=== PATIENT | female | born 1960 | race Caucasian/White ===

== ENCOUNTER 2016-12-31 10:40 | Emergency (ER) | payer BC ==
[2016-12-31 12:20] VITALS: BP 158/93
--- NOTE | 2016-12-31 12:39 | RAD ---
INDICATION: Left rib injury. COMPARISON: There are no prior studies available for comparison. TECHNIQUE: 2 views of the left ribs and dual-energy PA views of the chest were obtained. FINDINGS: There is a displaced fracture of the anterolateral left sixth rib and a nondisplaced fracture of the anterolateral left seventh rib. The heart is within normal limits in size. The lungs are clear. There is no evidence for pneumothorax or pleural effusion. There is a moderate to severe dorsal scoliosis convex toward the right side. IMPRESSION: FRACTURES OF THE LEFT ANTEROLATERAL SIXTH AND SEVENTH RIBS.
--- NOTE | 2016-12-31 18:11 | ED ---
Back Pain - HPI Summary HPI Summary: Patient presents to the ED with CC of left rib pain after slipping in the shower and falling onto the left side. She notes to immediate SOB. Pain is 4/ 10, worse with inspiration and better with rest. She has not taken anything for the pain. Injury occurred 2 hours prior to arrival. She denies chest pain , SOB or back pain. Pain in ribs is discretely located over the left lower ribs and is worse with palpation. She denies health history and is a non- smoker. Denies urinary symptoms, bleeding, HIRSCH or cough. - History of Current Complaint Chief Complaint: EDChestWallPain Stated Complaint: FALL/LT SIDE RIB PAIN Time Seen by Provider: 12/31/16 11:21 Hx Obtained From: Patient Onset/Duration: Sudden Onset Onset/Duration: Started Hours Ago Timing: Constant Back Pain Location: Is Discrete @ - left lower rib Severity Initially: Moderate Severity Currently: Moderate Pain Intensity: 8 Pain Scale Used: 0-10 Numeric Character: Aching Aggravating Symptom(s): Movement Alleviating Symptom(s): Rest, Position Associated Signs And Symptoms: Positive: Negative - Risk Factors AAA Risk Factors: Negative TAD Risk Factors: Negative Cauda Equina Risk Factors: Negative Epidural Abscess Risk Factors: Negative - Allergies/Home Medications Allergies/Adverse Reactions: Allergies Allergy/AdvReac Type Severity Reaction Status Date / Time No Known Allergies Allergy Unverified 01/17/15 14:34 PMH/Surg Hx/FS Hx/Imm Hx Previously Healthy: Yes Endocrine/Hematology History: Denies: Hx Diabetes, Hx Thyroid Disease, Hx Anemia Cardiovascular History: Denies: Hx Hypercholesterolemia, Hx Hypertension, Hx Peripheral Vascular Disease GI History: Denies: Hx Jaundice Musculoskeletal History: Denies: Hx Arthritis, Hx Rheumatoid Arthritis, Hx Osteoporosis Sensory History: Denies: Hx Cataracts, Hx Contacts or Glasses, Hx Glaucoma Opthamlomology History: Denies: Hx Cataracts, Hx Contacts or Glasses, Hx Glaucoma Neurological History: Denies: Hx Headaches, Hx Seizures, Hx Transient Ischemic Attacks (TIA) Psychiatric History: Denies: Hx Anxiety, Hx Depression - Cancer History Hx Chemotherapy: No Hx Radiation Therapy: No - Surgical History Surgery Procedure, Year, and Place: Left side thyroid gland removal 20 years ago. tubal ligation 10 years ago - Immunization History Hx Pertussis Vaccination: No Immunizations Up to Date: Unable to Obtain/Confirm Infectious Disease History: No Infectious Disease History: Denies: Traveled Outside the [place] in Last 30 Days - Social History Occupation: Employed Part-time Lives: With Family Alcohol Use: Weekly Hx Substance Use: No Substance Use Type: Reports: None Hx Tobacco Use: No Smoking Status (MU): Former Smoker Type: Cigarettes Review of Systems Constitutional: Negative Eyes: Negative Cardiovascular: Negative Positive: Shortness Of Breath Gastrointestinal: Negative Positive: no symptoms reported, see HPI Positive: Arthralgia - left sided lower rib pain Skin: Negative Neurological: Negative All Other Systems Reviewed And Are Negative: Yes Physical Exam Triage Information Reviewed: Yes Vital Signs On Initial Exam: Initial Vitals Temp Pulse Resp BP Pulse Ox 97.7 F 60 22 158/139 100 12/31/16 10:42 12/31/16 10:42 12/31/16 10:42 12/31/16 10:42 12/31/16 10:42 Vital Signs Reviewed: Yes Appearance: Positive: Well-Appearing, Well-Nourished Skin: Positive: Warm, Skin Color Reflects Adequate Perfusion Head/Face: Positive: Normal Head/Face Inspection Eyes: Positive: EOMI, MELVA, Conjunctiva Clear Neck: Positive: Supple, Nontender, No Lymphadenopathy Respiratory/Lung Sounds: Positive: Clear to Auscultation, Breath Sounds Present Cardiovascular: Positive: Normal, RRR, Pulses are Symmetrical in both Upper and Lower Extremities Musculoskeletal: Positive: Pain @ - left lower ribs Neurological: Positive: Sensory/Motor Intact, Alert, Oriented to Person Place, Time, Speech Normal Psychiatric: Positive: Normal AVPU Assessment: Alert - Pedro Coma Scale Best Eye Response: 4 - Spontaneous Best Motor Response: 6 - Obeys Commands Best Verbal Response: 5 - Oriented Diagnostics - Vital Signs Vital Signs Temp Pulse Resp BP Pulse Ox 12/31/16 12:15 97.7 F 64 18 158/93 98 12/31/16 10:42 97.7 F 60 22 158/139 100 - Laboratory Lab Statement: Any lab studies that have been ordered have been reviewed, and results considered in the medical decision making process. Back Pain Course/Dx - Course Course Of Treatment: Patient is evaluated for rib pain after a fall in the bathtub. IMPRESSION: FRACTURES OF THE LEFT ANTEROLATERAL SIXTH AND SEVENTH RIBS. Patient is given Tramadol. She is OK for discharge. Return precautions given. - Diagnoses Differential Diagnosis/HQI/PQRI: Positive: Strain, Sprain, Other - rib contusion , SOB Provider Diagnoses: Rib fracture Discharge - Discharge Plan Condition: Stable Disposition: HOME Prescriptions: traMADol TAB* [Ultram*] 50 mg PO TID #12 tab MDD 3 Patient Education Materials: Rib Fracture (ED) Referrals: Neli Tang NP [Primary Care Provider] - Additional Instructions: Moist heat to the area Ibuprofen three times daily For pain not well controlled with ibuprofen, you may take the Tramadol Do not drive or operate machinery with this medication If you develop any worsening shortness of breath or chest pain, return to the ED immediately
== END 2016-12-31 13:01 | disposition home or self-care (01) ==
LOC: ED 10:40
DX: S22.32XA Fracture of one rib, left side, initial encounter for closed fracture (principal); R07.81 Pleurodynia; R06.02 Shortness of breath; W19.XXXA Unspecified fall, initial encounter; Y93.9 Activity, unspecified; Y92.9 Unspecified place or not applicable; Y99.9 Unspecified external cause status; Z87.891 Personal history of nicotine dependence
CPT/HCPCS: 99282